=== PATIENT | female | born 1985 | race Caucasian/White ===

== ENCOUNTER → 2023-03-20 13:52 | Outpatient (REF) | payer BC, SELFPAY | LOC: CLAB 13:52 | PROVIDERS: ATTENDING PHYSICIAN Obstetrics & Gynecology | DX: Z34.90 Encounter for supervision of normal pregnancy, unspecified, unspecified trimester (principal) | CPT/HCPCS: 87070; 87086 ==

== ENCOUNTER 2023-04-05 01:28 | Inpatient (IN) | payer BC, SELFPAY ==
[2023-04-05 01:33] VITALS: BP 110/71; BMI 26.6
[2023-04-05 02:18] LABS: Hematocrit 36.4 % (37.0-47.0); Hemoglobin 13.1 g/dL (12.0-16.0); Mean Corpuscular Volume 83.3 fL (81.0-99.0); Mean Platelet Volume 10.4 fL (7.4-10.4); Platelet Count 262 10^3/uL (130-400); Red Blood Cell Count 4.37 10^6/uL (4.20-5.40); Red Cell Dist. Width 13.1 % (11.5-14.5); White Blood Cell Count 9.2 10^3/uL (4.8-10.8)
[2023-04-05] MEDS: TYLENOL 1000 MG PO (02:18)
[2023-04-05] MEDS: BICITRA 30 ML PO (02:19)
[2023-04-05] MEDS: ANCEF 10 IV (02:19)
--- NOTE | 2023-04-05 04:18 | W.IMMPOSTOP ---
Surgical Immed Post Op Note
-
Primary Surgeon: Nathaly Hendricks DO
Assisting Surgeon: Anum Monroe RN
Pre-op Diagnosis: IUP at 38+5wks, PROM, history of 3 prior c-sections, satisfied parity
Post-op Diagnosis: s/p RLTCS, s/p bilateral salpingectomy
Procedure Performed: RLTCS, bilateral salpingectomy
Anesthesia Type: spinal
Specimen / Cultures:right fallopian tube, left fallopian tube
Estimated Blood Loss: 560ml
Complications: none
Operative Findings: thin JOSÉ, otherwise normal-appearing uterus; normal-appearing tubes and ovaries; male infant, cephalic, Apgars 8/9, clear amniotic fluid
[2023-04-05] MEDS: TORADOL 15 MG IV ×3 (08:48→20:29)
[2023-04-05] MEDS: PRENATAL PLUS 1 TABLET PO (08:48)
[2023-04-05] MEDS: SENOKOT-S 1 TABLET PO (15:23)
[2023-04-05] MEDS: AFRIN NASAL SPRAY 2 SPRAYS NASAL (22:44)
[2023-04-05] MEDS: MYLICON 80 MG PO (22:55)
[2023-04-06] MEDS: TORADOL 15 MG IV (02:56)
[2023-04-06 03:32] LABS: Hematocrit 34.9 % (37.0-47.0); Hemoglobin 12.1 g/dL (12.0-16.0); Mean Corp Hgb Conc. 34.7 g/dL (33.0-37.0); Mean Corpuscular Hgb 30.6 pg (27.0-31.0); Mean Corpuscular Volume 88.1 fL (81.0-99.0); Mean Platelet Volume 10.3 fL (7.4-10.4); Platelet Count 228 10^3/uL (130-400); Red Blood Cell Count 3.96 10^6/uL (4.20-5.40); Red Cell Dist. Width 13.3 % (11.5-14.5); White Blood Cell Count 13.6 10^3/uL (4.8-10.8)
[2023-04-06] MEDS: PRENATAL PLUS 1 TABLET PO (08:29)
[2023-04-06] MEDS: MOTRIN 600 MG PO ×2 (08:30→20:24)
[2023-04-06] MEDS: MYLICON 80 MG PO ×2 (08:30→20:24)
[2023-04-06] MEDS: SENOKOT-S 1 TABLET PO (08:30)
[2023-04-06] MEDS: ROXICODONE 5 MG PO ×3 (08:31→20:24)
--- NOTE | 2023-04-06 17:47 | W.PN.ANS.POP ---
Anesthesia Post Operative
- Anesthesia Post Op Note
Vital Signs Stable-See Nursing Note: Yes
Airway Patent: Yes
Adequate Pain Control: Yes
Change in Mental Status: No
Current Postoperative Nausea & Vomiting: No
Anesthesia Complications: No
General Anesthetic Recall: No
Unplanned Admission: No
Post Op Hydration Adequate: Yes
[2023-04-06] MEDS: AFRIN NASAL SPRAY NASAL (20:00)
[2023-04-07] MEDS: ROXICODONE 5 MG PO ×2 (04:17→10:34)
[2023-04-07] MEDS: MOTRIN 600 MG PO ×2 (04:17→10:34)
[2023-04-07] MEDS: AFRIN NASAL SPRAY NASAL (10:33)
[2023-04-07] MEDS: PRENATAL PLUS PO (10:34)
[2023-04-07 14:49] LABS: Syphilis/T. pallidum Ab Reflex Negative (Negative)
== END 2023-04-07 10:47 | disposition home or self-care (01) | DRG 785 ==
LOC: LDRP 01:28
PROVIDERS: Obstetrics & Gynecology; ADMITTING PHYSICIAN Obstetrics & Gynecology; ATTENDING PHYSICIAN Obstetrics & Gynecology
PROC: 0UT70ZZ Resection of Bilateral Fallopian Tubes, Open Approach (ICD-10-PCS; 2023-04-05)
PROC: 10D00Z1 Extraction of Products of Conception, Low, Open Approach (ICD-10-PCS; 2023-04-05)
DX: O42.02 Full-term premature rupture of membranes, onset of labor within 24 hours of rupture (principal); Z3A.38 38 weeks gestation of pregnancy; Z37.0 Single live birth; O34.211 Maternal care for low transverse scar from previous cesarean delivery; O99.284 Endocrine, nutritional and metabolic diseases complicating childbirth; E03.9 Hypothyroidism, unspecified; Z83.3 Family history of diabetes mellitus; Z80.3 Family history of malignant neoplasm of breast; Z80.0 Family history of malignant neoplasm of digestive organs
CPT/HCPCS: 88302; 36415; 58605; 85027; 86780; 86850; 86900; 86901

== ENCOUNTER → 2023-10-24 07:12 | Outpatient (REF) | payer BC, SELFPAY ==
[2023-10-24 08:56] LABS: Hematocrit 38.8 % (37.0-47.0); Hemoglobin 12.9 g/dL (12.0-16.0); Mean Corp Hgb Conc. 33.2 g/dL (33.0-37.0); Mean Corpuscular Hgb 27.7 pg (27.0-31.0); Mean Corpuscular Volume 83.4 fL (81.0-99.0); Mean Platelet Volume 10.1 fL (7.4-10.4); Platelet Count 309 10^3/uL (130-400); Red Blood Cell Count 4.65 10^6/uL (4.20-5.40); Red Cell Dist. Width 12.5 % (11.5-14.5); White Blood Cell Count 6.3 10^3/uL (4.8-10.8)
[2023-10-24 09:26] LABS: ALT (SGPT) 17 U/L (0-35); AST (SGOT) 28 U/L (14-36); Albumin 4.8 g/dl (3.5-5.0); Alkaline Phosphatase 40 U/L (38-126); Blood Urea Nitrogen 15 mg/dl (7-17); Calcium 9.5 mg/dl (8.4-10.2); Carbon Dioxide 23 mmol/L (22-30); Chloride 103 mmol/L (98-107); Glucose 90 mg/dl (70-99); HDL Cholesterol 64 mg/dl; LDL Cholesterol, Calculated 55 mg/dl; Potassium 4.4 mmol/L (3.5-5.1); Sodium 140 mmol/L (135-145); Total Bilirubin 0.6 mg/dl (0.2-1.3); Total Cholesterol 128 mg/dl (50-199); Triglyceride 49 mg/dl (10-149); Very Low Density Lipoprotein 9 mg/dl (0-30); eGFR > 60.00
[2023-10-24 09:48] LABS: TSH Reflex To Free T4 1.19 uIU/ml (0.47-4.68)
== END ==
LOC: REG 07:12
PROVIDERS: ATTENDING PHYSICIAN Physician Assistant Medical
DX: E03.9 Hypothyroidism, unspecified (principal); Z00.00 Encounter for general adult medical examination without abnormal findings; Z13.220 Encounter for screening for lipoid disorders
CPT/HCPCS: 36415; 80053; 80061; 84443; 85027

== ENCOUNTER → 2024-04-12 11:24 | Outpatient (REF) | payer BC, SELFPAY ==
[2024-04-21 00:26] LABS: HPV, High Risk Not Detected; HPV, High Risk Source Cervical
== END ==
LOC: CPAP 11:24
PROVIDERS: ATTENDING PHYSICIAN Advanced Practice Midwife
DX: Z01.419 Encounter for gynecological examination (general) (routine) without abnormal findings (principal); Z11.51 Encounter for screening for human papillomavirus (HPV)
CPT/HCPCS: 87624

== ENCOUNTER → 2025-01-27 06:35 | Outpatient (REF) | payer BC, SELFPAY ==
[2025-01-27 08:53] LABS: ALT (SGPT) 13 U/L (0-35); AST (SGOT) 22 U/L (14-36); Albumin 4.6 g/dl (3.5-5.0); Alkaline Phosphatase 35 U/L (38-126); Blood Urea Nitrogen 18 mg/dl (7-17); Calcium 9.3 mg/dl (8.4-10.2); Carbon Dioxide 25 mmol/L (22-30); Chloride 102 mmol/L (98-107); Glucose 87 mg/dl (70-99); HDL Cholesterol 79 mg/dl; Iron 37 ug/dl (37-170); LDL Cholesterol, Calculated 62 mg/dl; Potassium 4.0 mmol/L (3.5-5.1); Sodium 137 mmol/L (135-145); Total Protein 7.2 g/dl (6.3-8.2); Very Low Density Lipoprotein 7 mg/dl (0-30); eGFR > 60.00
[2025-01-27 08:54] LABS: Hematocrit 31.6 % (37.0-47.0); Hemoglobin 9.8 g/dL (12.0-16.0); Mean Corp Hgb Conc. 31.0 g/dL (33.0-37.0); Mean Corpuscular Volume 73.1 fL (81.0-99.0); Nucleated Red Blood Cells % 0 %; Platelet Count 411 10^3/uL (130-400); Red Cell Dist. Width 16.1 % (11.5-14.5)
[2025-01-27 09:04] LABS: Total Iron Binding Capacity 478 ug/dl (265-497)
[2025-01-27 09:23] LABS: Ferritin 4.0 ng/ml (6.24-137)
== END ==
LOC: REG 06:35
PROVIDERS: ATTENDING PHYSICIAN Nurse Practitioner Family
DX: Z00.00 Encounter for general adult medical examination without abnormal findings (principal); E07.9 Disorder of thyroid, unspecified; N92.0 Excessive and frequent menstruation with regular cycle
CPT/HCPCS: 36415; 80053; 80061; 82728; 83540; 83550; 84443; 85025